=== PATIENT | male | born 1955 | race Caucasian/White ===

== ENCOUNTER → 2023-01-07 13:49 | Outpatient (BNVA) | payer MEDICARE, OTHER, SELFPAY | PROVIDERS: Referring Provider Family Medicine; Visit Provider Podiatrist Foot & Ankle Surgery | DX: G57.61 Lesion of plantar nerve, right lower limb; L84 Corns and callosities | CPT/HCPCS: 64455; 73630; 99203; J1100; J3301; J3490 ==

== ENCOUNTER → 2023-02-17 07:06 | Outpatient (BNVA) | payer MEDICARE, OTHER, SELFPAY | PROVIDERS: Visit Provider Podiatrist Foot & Ankle Surgery | DX: G57.61 Lesion of plantar nerve, right lower limb (principal); L84 Corns and callosities; L60.3 Nail dystrophy | CPT/HCPCS: 64455; 99213; J1100; J3301; J3490 ==

== ENCOUNTER → 2023-04-28 07:17 | Outpatient (BNVA) | payer MEDICARE, OTHER, SELFPAY | PROVIDERS: PCP Family Medicine; Visit Provider Podiatrist Foot & Ankle Surgery | DX: L60.0 Ingrowing nail (principal); L84 Corns and callosities; G57.61 Lesion of plantar nerve, right lower limb; L60.3 Nail dystrophy | CPT/HCPCS: 11750; 99213 ==

== ENCOUNTER → 2023-05-29 08:47 | Outpatient (BNVA) | payer MEDICARE, OTHER, SELFPAY | PROVIDERS: PCP Family Medicine; Visit Provider Podiatrist Foot & Ankle Surgery | DX: L60.0 Ingrowing nail (principal) | CPT/HCPCS: 11750 ==

== ENCOUNTER → 2023-11-03 07:03 | Outpatient (BNVA) | payer MEDICARE, OTHER, SELFPAY | PROVIDERS: PCP Family Medicine; Visit Provider Podiatrist Foot & Ankle Surgery | DX: M77.41 Metatarsalgia, right foot; M77.42 Metatarsalgia, left foot; L84 Corns and callosities | CPT/HCPCS: 99213 ==

== ENCOUNTER 2023-11-13 07:45 | Outpatient (CLI) | payer MEDICARE, OTHER, SELFPAY ==
--- NOTE | 2023-11-13 07:45 | US_ITS ---
WS: [id number] Exam: US soft tissue/extremity [id number] Date/Time of Exam: 11/13/2023 7:45 AM Reason For Exam: evaluate for neuroma The metatarsal areas of both feet were targeted for ultrasound evaluation. There is no evidence of soft tissue mass or abnormal localized fluid collection in the region of the bilateral metatarsals. There were no findings to suggest Mortons neuroma. US/US soft tissue/extremity [id number] IMPRESSION: 1. No sign of soft tissue mass or abnormal fluid collection involving the regio n of the bilateral metatarsals. No sign of Freire's neuroma.
== END 2023-11-13 07:46 | disposition home or self-care (01) ==
PROVIDERS: PCP Family Medicine; Visit Provider Podiatrist Foot & Ankle Surgery
DX: M79.673 Pain in unspecified foot (principal); M77.41 Metatarsalgia, right foot; M77.42 Metatarsalgia, left foot
CPT/HCPCS: 76882

== ENCOUNTER → 2023-12-08 06:59 | Outpatient (BNVA) | payer MEDICARE, OTHER, SELFPAY | PROVIDERS: PCP Family Medicine; Visit Provider Podiatrist Foot & Ankle Surgery | DX: L84 Corns and callosities; M77.41 Metatarsalgia, right foot; M77.42 Metatarsalgia, left foot | CPT/HCPCS: 99213 ==

== ENCOUNTER 2024-01-02 11:34 | Outpatient (CLI) | payer MEDICARE, OTHER, SELFPAY | END 2024-01-02 11:35 | disposition home or self-care (01) | LOC: SPT 11:36 | PROVIDERS: PCP Family Medicine; Visit Provider Podiatrist Foot & Ankle Surgery | DX: Z46.89 Encounter for fitting and adjustment of other specified devices (principal); G57.61 Lesion of plantar nerve, right lower limb | CPT/HCPCS: L3030 ==

== ENCOUNTER → 2024-02-26 15:18 | Outpatient (BNVA) | payer MEDICARE, OTHER, SELFPAY | PROVIDERS: PCP Family Medicine; Visit Provider Podiatrist Foot & Ankle Surgery | DX: G57.61 Lesion of plantar nerve, right lower limb (principal) | CPT/HCPCS: 64455; J1100; J3301; J3490 ==

== ENCOUNTER → 2025-03-29 07:12 | Outpatient (BNVA) | payer MEDICARE, SELFPAY | PROVIDERS: PCP Family Medicine; Visit Provider Podiatrist Foot & Ankle Surgery | DX: G57.61 Lesion of plantar nerve, right lower limb (principal); G57.62 Lesion of plantar nerve, left lower limb | CPT/HCPCS: 64455 ==